=== PATIENT | female | born 1965 | race Caucasian/White ===

== ENCOUNTER 2017-10-28 11:46 | Day surgery (SDC) | payer OTHER ==
[2017-10-28 12:42] VITALS: RESP 16; TEMP 97.8
[2017-10-28 13:46] VITALS: BP 124/82; PULSE 67
--- NOTE | 2017-10-29 09:27 | US ---
EXAMINATION TYPE: US biopsy thorax or neck DATE OF EXAM: 10/28/[address] scan 10/15/2017 from outside institution HISTORY: Right neck mass. FINDINGS: Maximal barrier technique was utilized. The skin overlying a suitable path to the patient' s mass was localized with ultrasound and the overlying skin prepped and draped. Ultrasound was utili zed with sterile technique. Lidocaine was used for local anesthesia. 25-gauge needle was advanced un marilou direct ultrasound guidance and aspirated specimen obtained of the mass, dark chocolate fluid, 3 c c obtained. Additional passes made into the solid component. 4 passes performed in all. Specimen sub mitted in formalin to Pathology. Following the procedure, hemostasis achieved and the patient is dis charged in stable condition without complication. IMPRESSION:STATUS POST ULTRASOUND GUIDED ASPIRATION BIOPSY OF right neck MASS, PATHOLOGY IS PENDING. THIS PROCEDURE IS PERFORMED BY THE UNDERSIGNED.
== END 2017-10-28 13:51 | disposition home or self-care (01) ==
LOC: RADPROMAIN 11:46
PROVIDERS: ATTEND Otolaryngology Plastic Surgery within the Head & Neck
DX: C73 Malignant neoplasm of thyroid gland (principal); C77.0 Secondary and unspecified malignant neoplasm of lymph nodes of head, face and neck
CPT/HCPCS: 10022; 21550; 88173; 88305; 88341; 88342

== ENCOUNTER → 2018-02-03 | Outpatient (CLI) | payer OTHER ==
--- NOTE | 2018-02-04 10:18 | NM ---
EXAMINATION TYPE: NM thyroid uptake only single DATE OF EXAM: 02/04/2018 COMPARISON: Neck CT 10/15/2017 HISTORY: Thyroid cancer Following administration of 103 uCi I-123 Capsule FINDINGS: Thyroid uptake is calculated at 1.1% at 24 hours. IMPRESSION: Abnormal low thyroid uptake
== END | disposition home or self-care (01) ==
LOC: RADNMMAIN 08:17
PROVIDERS: ATTEND Internal Medicine
DX: C73 Malignant neoplasm of thyroid gland (principal); R94.6 Abnormal results of thyroid function studies
CPT/HCPCS: 78012; A9516

== ENCOUNTER → 2018-02-10 | Day surgery (SDC) | payer OTHER ==
--- NOTE | 2018-02-10 14:46 | NM ---
EXAMINATION: Nuclear medicine thyroid I-131 therapy for cancer (outpatient) DATE: 02/10/2018. HISTORY: 53-year-old female status post resection of thyroid cancer. Resected lymph nodes also positi ve. Patient presents for post resection and ablation treatment. COMPARISON: Correlation with nuclear medicine thyroid uptake scan of 02/03/2017. RADIOTRACER: 160.0 mCi I-131. TECHNIQUE: Cytomel has been held. Patient is on a low iodine diet. Dose was prescribed (written directive) by an Authorized User in conjunction with treatment request julianne Gomes. Risks, benefits, and potential complications of radioactive I-131 therapy were discussed in detail wi th the patient by myself and the non licensed nuclear equipment operator. Verbal and written informed consent wer e obtained. Written instructions were given for radiation safety precautions to be observed for 7 day s outpatient. The patient specific exposure calculations were done by RSO to ensure estimated max dose to any indiv idual exposed to the patient was less than 5 mSv. The patient was specifically advised to avoid close contact with children, women, and other members of public. Dose was verified in dose caliber and patient was given oral I-131 pill under the supervision of me prabhakar kwong the non licensed nuclear equipment operator. There were no immediate complications. IMPRESSION: Outpatient 160 mCi I-131 oral therapy capsule for thyroid cancer with metastatic cervical lymph nodes on surgery. Patient to return for postablation scan 2 days and 5 days postadministration.
--- NOTE | 2018-02-17 00:10 | NM ---
EXAMINATION TYPE: NM I-131 THYROID CANCER METASTATIC SCAN WHOLE BODY DATE OF EXAM: 02/12/2018 HISTORY: 53-year-old female with history of thyroid cancer status post thyroidectomy and lymph node r esection. Positive lymph nodes noted on pathology. COMPARISON: Therapy on 02/10/2018 and uptake on 02/03/2018 TECHNIQUE: Following the oral administration of 160 mCi I-131 on 02/10/2018, whole body scan was perfo rmed at 2 days and 5 days after radiotracer administration. FINDINGS: There is physiologic uptake within the salivary glands, nasopharynx, and also within the stomach, col on, and bladder. There is focal intense uptake centered in the thyroidectomy bed. Otherwise, no abnormal tracer activity is seen. IMPRESSION: 1. Expected uptake within the thyroidectomy bed relating to thyroid remnant. 2. No additional abnormal uptake identified throughout the body. No evidence for any residual metasta tic cervical lymph nodes.
== END ==
LOC: RADNMMAIN 12:38
PROVIDERS: ATTEND Internal Medicine
DX: C73 Malignant neoplasm of thyroid gland (principal)
CPT/HCPCS: 79005; A9517

== ENCOUNTER → 2018-09-09 | Outpatient (CLI) | payer OTHER ==
--- NOTE | 2018-09-09 16:51 | FL ---
EXAMINATION TYPE: FL barium swallow w video DATE OF EXAM: 09/09/2018 COMPARISON: NONE HISTORY: Dysphasia TECHNIQUE: Fluoroscopy. FINDINGS: Fluoroscopic guidance was provided for the procedure performed in conjunction with the [facility] satellite pathology department. Please see complete report forthcoming from the Speech Pathology departmen t. Various consistencies from thin liquid to solids were administered. Fluoroscopy time 1.09 minutes. Number of images: 0. No aspiration or penetration was evident. No significant pooling was observed in the vallecula. There was normal propulsion of the bolus. IMPRESSION: 1. Essentially normal modified barium swallow. 2. Some mild prominence of the cricopharyngeus muscle was present during some portions of this examin ation.
== END ==
LOC: RADFLMAIN 11:14
PROVIDERS: ATTEND Otolaryngology Plastic Surgery within the Head & Neck
DX: R13.10 Dysphagia, unspecified (principal)
CPT/HCPCS: 74230

== ENCOUNTER → 2018-09-16 | Outpatient (CLI) | payer OTHER ==
--- NOTE | 2018-09-16 09:50 | FL ---
EXAMINATION TYPE: FL barium swallow DATE OF EXAM: 09/16/2018 CLINICAL HISTORY: Dysphagia. Globus sensation. History of thyroid cancer with lymph nodes had surgery and iodine treatment. TECHNIQUE: A double contrast esophagram is performed utilizing air and barium. A total of 30 second s of fluoroscopic time was utilized during procedure. 58 spot images are saved. COMPARISON: None FINDINGS: The esophagus shows satisfactory motility and emptying into the stomach. No evidence of in traluminal mass or stricture noted. Small sliding-type hiatal hernia is present. No significant gastr oesophageal reflux was seen during real time performance of this study. IMPRESSION: No significant abnormality is seen to account for patient's symptoms.
== END | disposition home or self-care (01) ==
LOC: RADFLWHC 08:42
PROVIDERS: ATTEND Otolaryngology Plastic Surgery within the Head & Neck
DX: R13.10 Dysphagia, unspecified (principal)
CPT/HCPCS: 74220

== ENCOUNTER → 2018-12-24 | Outpatient (CLI) | payer OTHER ==
--- NOTE | 2018-12-28 16:32 | MM ---
Reason for exam: screening (asymptomatic). Last mammogram was performed 17 years and 5 months ago. History: Patient is postmenopausal, has history of other cancer at age 52, and is nulliparous. Family history of breast cancer in grandmother. MG Screening Mammo w CAD Bilateral CC and MLO view(s) were taken. Prior study comparison: July 20, 2001, bilateral screening mammogram. The breast tissue is heterogeneously dense. This may lower the sensitivity of mammography. Nodular asymmetry centrally left CC view. ASSESSMENT: Incomplete: need additional imaging evaluation, BI-RAD 0 RECOMMENDATION: Special view mammogram of the left breast. [facility] will attempt to contact patient to return for supplemental views.
== END | disposition home or self-care (01) ==
LOC: RADMAMWWP 07:28
PROVIDERS: ATTEND Family Medicine
DX: Z12.31 Encounter for screening mammogram for malignant neoplasm of breast (principal)
CPT/HCPCS: 77067

== ENCOUNTER → 2019-01-03 | Outpatient (CLI) | payer OTHER ==
--- NOTE | 2019-01-04 08:06 | MM ---
Reason for exam: additional evaluation requested from abnormal screening. Last mammogram was performed less than 1 month ago. History: Patient is postmenopausal, has history of other cancer at age 52, and is nulliparous. Family history of breast cancer in grandmother. Physical Findings: Nurse did not find any significant physical abnormalities on exam. MG Work Up Mamm w CAD LT Spot compression CC and LM view(s) were taken of the left breast. Prior study comparison: December 24, 2018, bilateral MG screening mammo w CAD. July 20, 2001, bilateral screening mammogram. The breast tissue is heterogeneously dense. This may lower the sensitivity of mammography. No suspicious abnormality. The previously seen abnormality resolves on additional views and appears as fibroglandular tissue compatible with summation. These results were verbally communicated with the patient and result sheet given to the patient on 01/03/19. ASSESSMENT: Negative, BI-RAD 1 RECOMMENDATION: Return to routine screening mammogram schedule for both breasts.
== END | disposition home or self-care (01) ==
LOC: RADMAMWWP 14:20
PROVIDERS: ATTEND Family Medicine
DX: R92.8 Other abnormal and inconclusive findings on diagnostic imaging of breast (principal)
CPT/HCPCS: 77065

== ENCOUNTER → 2020-09-19 | Outpatient (CLI) | payer OTHER ==
--- NOTE | 2020-09-19 23:25 | MR ---
EXAMINATION TYPE: MR knee RT wo con DATE OF EXAM: 09/19/2020 COMPARISON: None HISTORY: Right knee pain x 4 weeks Multiplanar multiecho imaging of the right knee was performed without contrast. There is knee joint effusion. There is some mild spurring on the patella. The anterior and posterior cruciate ligaments are intact. There are small degenerative cysts in the patella. There is 2 cm rounded area of fluid signal in the lateral tibial condyle consistent with a large dege nerative cyst. There is vertical tear through the anterior horn of the lateral meniscus. There is also a small horiz ontal tear anterior horn lateral meniscus. There is some degenerative thinning of the medial meniscus. There is horizontal and vertical tear of the posterior horn medial meniscus. There is 2.5 x 1.5 cm popliteal cyst. There is 12 mm area of irre gular mixed signal involving the tibial spines. This probably relates to nondisplaced fracture of the tibial spines. There is spurring of the femoral and tibial condyles. The collateral ligaments are in tact. IMPRESSION: Nondisplaced fracture of the tibial spines. Large degenerative cyst in the lateral tibial condyle. Tears of the medial and lateral menisci as above. Moderate knee joint effusion and popliteal cyst. Small degenerative cysts in the patella.
== END | disposition home or self-care (01) ==
LOC: RADMRIMAIN 15:14
PROVIDERS: ATTEND Internal Medicine Rheumatology
DX: S83.241A Other tear of medial meniscus, current injury, right knee, initial encounter (principal); S83.281A Other tear of lateral meniscus, current injury, right knee, initial encounter

== ENCOUNTER → 2021-04-11 | Outpatient (CLI) | payer OTHER | END | disposition home or self-care (01) | LOC: LABPAT 13:20 | PROVIDERS: ATTEND Orthopaedic Surgery | DX: Z01.812 Encounter for preprocedural laboratory examination (principal); M17.12 Unilateral primary osteoarthritis, left knee; Z22.322 Carrier or suspected carrier of Methicillin resistant Staphylococcus aureus | CPT/HCPCS: 87070 ==

== ENCOUNTER → 2021-04-24 | Outpatient (CLI) | payer OTHER ==
[~2021-04-24] MED LIST: IRON DEXTRAN 25 MG in SODIUM CHLORIDE 0.9% 50 ML IV ONE; IRON DEXTRAN 975 MG in SODIUM CHLORIDE 0.9% 250 ML IV ONE; SODIUM CHLORIDE 0.9% 250 ML IV ONE; SODIUM CHLORIDE 0.9% 500 ML 500 ML in EMPTY BAG 1 BAG IV PRN
[2021-04-24 08:30] VITALS: RESP 16; TEMP 98
[2021-04-24 09:29] VITALS: BP 125/78; PULSE 85
== END ==
LOC: PROCWHC3 08:07
PROVIDERS: ATTEND Internal Medicine Medical Oncology
DX: D50.0 Iron deficiency anemia secondary to blood loss (chronic) (principal); D72.828 Other elevated white blood cell count; C73 Malignant neoplasm of thyroid gland; Z88.1 Allergy status to other antibiotic agents; Z88.5 Allergy status to narcotic agent; Z88.6 Allergy status to analgesic agent
CPT/HCPCS: 96365; 96366; J1750

== ENCOUNTER → 2021-04-29 | Outpatient (CLI) | payer OTHER ==
[2021-04-29 14:06] LABS: HCT 33.3 % (34.0-46.0); HGB 10.7 gm/dL (11.4-16.0); MCH 23.9 pg (25.0-35.0); MCHC 32.2 g/dL (31.0-37.0); MCV 74.3 fL (80.0-100.0); Microcytosis Slight; Platelet Count 499 k/uL (150-450); RBC 4.48 m/uL (3.80-5.40); RDW 15.6 % (11.5-15.5); WBC 8.5 k/uL (3.8-10.6)
== END | disposition home or self-care (01) ==
LOC: LABPAT 13:29
PROVIDERS: ATTEND Orthopaedic Surgery
DX: Z01.812 Encounter for preprocedural laboratory examination (principal)
CPT/HCPCS: 85027

== ENCOUNTER 2021-04-30 05:58 | Observation (INO) | payer OTHER ==
[2021-04-22 16:01] VITALS: BMI 36.5
--- NOTE | 2021-04-29 13:20 | HP ---
HISTORY AND PHYSICAL CHIEF COMPLAINT: Left knee pain. HISTORY OF PRESENT ILLNESS: The patient is a 56-year-old retired female who presents with progressive left knee pain for the past several years, worsening over the past 2-3 months. She notes diffuse pain, stiffness, and catching. She has a difficult time with walking. She has tried injections along with therapy with only temporary partial relief. She has been working on weight loss as well. She does use a cane. PAST MEDICAL HISTORY: Significant for rheumatoid arthritis, thyroid cancer, hypertension. PAST SURGICAL HISTORY: Hysterectomy and thyroidectomy. CURRENT MEDICATIONS: Albuterol, Famotidine, Lasix, ibuprofen, levothyroxine, lisinopril, lorazepam. ALLERGIES: She denies drug allergies. FAMILY HISTORY: Significant for cancer. SOCIAL HISTORY: Negative for current tobacco or alcohol use. REVIEW OF SYSTEMS: Sixteen-point review of systems otherwise reviewed and is significant for multiple joint complaints. PHYSICAL EXAMINATION: On examination, patient is approximately 5 foot 6, 242 pounds of endomorphic habitus. HEENT exam is nonfocal. NECK is supple. EXTREMITIES: She has painless passive motion of her left hip. Straight leg raise is negative. Active motion left knee, -12 to 70 degrees of flexion. She has a mild effusion. She is tender about the lateral joint line. Collaterals are stable, Taniya is negative, Pema's is equivocal. She has genu valgum alignment. Her distal neurovascular exam appears intact in the left lower extremity. X-rays to include weightbearing notch, lateral and Merchant views left knee obtained in the office show severe lateral and patellofemoral compartment narrowing with subchondral sclerosis and clih-he-dnef changes. IMPRESSION: 1. Left knee severe lateral and patellofemoral compartment osteoarthrosis. 2. History of rheumatoid arthritis. RECOMMENDATIONS: I talked to the patient at length regarding her condition and treatment options. At this point, she is quite symptomatic and limited because of her pain related to her left knee arthritis despite previous conservative measures. After thorough discussion, she opts to proceed with surgery. We will plan to proceed with left total knee arthroplasty. We will institute DVT prophylaxis postoperatively. Risks and benefits were discussed at length in layman's terms. MMODL / IJN: [id number] /
[~2021-04-30 05:58] MED LIST changes: +ACETAMINOPHEN TAB 500 MG TAB PO PRN; -IRON DEXTRAN 25 MG in SODIUM CHLORIDE 0.9% 50 ML IV ONE; -IRON DEXTRAN 975 MG in SODIUM CHLORIDE 0.9% 250 ML IV ONE; +MELOXICAM 7.5 MG TAB PO PRN; -SODIUM CHLORIDE 0.9% 250 ML IV ONE; -SODIUM CHLORIDE 0.9% 500 ML 500 ML in EMPTY BAG 1 BAG IV PRN; +TRANEXAMIC ACID 1,000 MG in SODIUM CHLORIDE 0.9% 100 ML IVPB PRN
[2021-04-30] MEDS ORDERED: DEXAMETHASONE SOD PHOSPHATE 4 MG/ML 1 ML VIAL IV ONE (06:36)
[2021-04-30] MEDS ORDERED: HYDROmorphone 0.5 MG/0.5 ML SYRINGE IVP PRN (06:36)
[2021-04-30] MEDS ORDERED: MIDAZOLAM 2 MG/2 ML VIAL IV PRN (06:36)
[2021-04-30] MEDS ORDERED: ONDANSETRON 4 MG/2 ML VIAL IVP ONE (06:36)
[2021-04-30] MEDS: LACTATED RINGERS 1,000 ML IV SCH (07:01)
[2021-04-30] MEDS ORDERED: PROPOFOL 10 MG/ML 20 ML VIAL IV ONE (07:58)
[2021-04-30] MEDS ORDERED: MIDAZOLAM 2 MG/2 ML VIAL ONE (07:58)
[2021-04-30] MEDS ORDERED: TRANEXAMIC ACID 1,000 MG/10 ML VIAL ONE (07:58)
[2021-04-30] MEDS ORDERED: DEXAMETHASONE SOD PHOSPHATE 4 MG/ML 1 ML VIAL ONE (07:58)
[2021-04-30] MEDS ORDERED: ROPIVACAINE 5 MG/ML 30 ML VIAL ONE (07:58)
[2021-04-30] MEDS ORDERED: SODIUM CHLORIDE 0.9% 100 ML BAG ONE (07:58)
[2021-04-30] MEDS ORDERED: ceFAZolin 1,000 MG in SODIUM CHLORIDE 0.9% 1,000 ML IRRIGATION ONE (08:27)
[2021-04-30] MEDS ORDERED: NALOXONE 0.4 MG/ML 1 ML VIAL IV PRN (09:39)
[2021-04-30] MEDS ORDERED: MAGNESIUM HYDROXIDE 2,400 MG/10 ML CUP PO PRN (09:39)
[2021-04-30] MEDS ORDERED: LACTATED RINGERS 1,000 ML IV ONE (09:52)
--- NOTE | 2021-04-30 10:05 | P.OP ---
Date of Procedure: 04/30/21 Preoperative Diagnosis: Left knee severe tricompartmental osteoarthrosis Postoperative Diagnosis: Same Procedure(s) Performed: Left total knee arthroplastycementedposterior stabilized Implants: Depuy Attune size 6 narrow cemented femoral component, size 5 cemented tibial component, 12 mm articular surface, 35 mm cemented patellar component. Anesthesia: regional, spinal Surgeon: Abhinav De La Garza Recordist Chief #1: Prosper Alcantara Estimated Blood Loss (ml): 50 Pathology: other (Bone fragments) Condition: stable Disposition: PACU Indications for Procedure: The patient's 56-year-old female who presents with progressive left knee pain secondary to rheumatoid and osteoarthrosis despite conservative measures. A discussion of the risks and benefits of operative intervention versus continued conservative measures made with patient. She proceed with surgery. Operative risks to include infection, neurovascular injury, development of blood clots, fracture, component loosening/failure need for central procedures was discussed. Informed consent was obtained. Operative Findings: As below Description of Procedure: The patient was brought to the operating room, and after induction of spinal anesthesia the left lower extremity was prepped and draped in a normal fashion. The tourniquet was inflated to 270 mm marker. A longitudinal incision extending 3 finger breaths above the superior pole of patella extending to the medial aspect the tibial tubercle was then made. The skin and subcutaneous tissues were divided sharply. Electrocautery was used for hemostasis. A medial parapatellar arthrotomy was performed. The medial soft tissues to include the superficial and deep portions of the medial collateral ligament were elevated subperiosteally. The patella was everted. A portion of the retropatellar fat pad was excised sharply. The anterior cruciate ligament was sacrificed. Blunt retractors were placed. A starting hole was made in the distal femur 1 cm anterior to the posterior cruciate ligament origin. An intramedullary femoral guide was then inserted planning on 5 valgus distal cut with 9 mm distal resection. The cutting block was pinned in place. The distal cut was then made. The posterior referencing sizing guide was utilized. I felt size 6 narrow was most appropriate. 3 of external rotation was built into the system and verified off the trans-epicondylar axis and the posterior condyles. The cutting block was pinned in place. The anterior, posterior, and chamfer cuts then made. Bone fragments were removed. The intercondylar guide was placed and the notch cut was made with a sagittal saw. The bone block was removed in one fragment. The trial component was then placed. There is good anterior to posterior and medial to lateral fit. The distal peg holes were drilled. The trial component was removed. Attention was then paid towards preparing the proximal femur. An extra medullary guide was utilized in line with the tibial shaft and second metatarsal distally. I planned on 6 mm resection from the medial compartment. The cutting block was pinned in place. The proximal tibial cut was then made. The bone was removed in one fragment. The remnants of the medial and lateral menisci were excised at the capsular junction with electrocautery. The tibia sized most appropriately at size 5. The trial femoral and tibial components were placed along with a 12 mm articular surface. I was able to obtain full flexion and extension with internal and external rotation. After several flexion and extension cycles, the tibial rotation was marked with electrocautery line with the medial one third of the tibial tubercle. Attention was then paid towards preparing the patella. A patella reamer was utilized taking stem to 14 mm of bone stock. A good flush cut was made. The patella sized most appropriately 35 mm. The peg holes were drilled. The trial components placed. I had good patellofemoral tracking with no hands technique. The trial components were then removed. The tibia was prepared in the appropriate rotation with appropriate drill and keel punch. The posterior osteophytes were removed with a curved osteotome. The flexion and extension gaps were checked and felt to be symmetric at 12 mm. A trial components were then removed. The bony surfaces were prepared with pulsatile lavage and dried. The tibial component was then cemented place was fully seated. Excess cement was removed. The femoral component cemented place and was fully seated. Excess cement was removed. The trial 12 mm articular surface was placed and the knee was put in full extension. The patella component was cemented place. After the cement had sufficiently hardened, the knee was again taken through a range of motion. Again I was able to obtain full flexion and extension with varus and valgus stress. The trial 12 mm articular surface was removed and the final one inserted. This was fully seated. Care was taken to avoid any soft tissue interposition. Pulsatile lavage was again utilized. The medial parapatellar arthrotomy was closed with #2 Ethibond suture. The tourniquet was deflated with approximately 65 minutes total tourniquet time. Final hemostasis was obtained with the cautery. There was minimal bleeding therefore a deep drain was not placed. The subcutaneous tissues were reapproximated with interrupted 2-0 Vicryl sutures. The skin was reapproximated with 3-0 subcuticular strata fix suture. Skin tape and adhesive was applied. A sterile dressing was applied. The patient was awoken from sedation and transferred to recovery room in good condition. Blood loss was estimated at 50 mL. No complications were incurred. Sponge and needle counts were correct at the end of the case. Jordan CLAYTON assisted during the major components of this case to include exposure, bone resection, implantation, and closure.
[2021-04-30] MEDS ORDERED: ROPIVACAINE 0.2%-NS ON-Q PUMP 2 MG/ML EACH MISCELLANE ONE (10:15)
--- NOTE | 2021-04-30 10:22 | XR ---
EXAMINATION TYPE: XR knee limited LT DATE OF EXAM: 04/30/2021 COMPARISON: NONE TECHNIQUE: Two views submitted HISTORY: Post op FINDINGS: There is a prosthetic knee in near anatomic alignment. There is soft tissue edema and emphysema. IMPRESSION: 1. Postoperative change. Appears in near-anatomic alignment
[2021-04-30] MEDS ORDERED: ROPIVACAINE 0.2%-NS ON-Q PUMP 1,090 MG, EMPTY PAIN BALL 1 EACH MISCELLANE PRN (10:39)
[2021-04-30] MEDS: HYDROmorphone 0.5 MG/0.5 ML SYRINGE IVP PRN (17:23)
[2021-04-30] MEDS ORDERED: LORazepam 0.5 MG TAB PO PRN (17:48)
--- NOTE | 2021-04-30 19:33 | P.ANPRN ---
Procedure Note - Anesthesia - Nerve Block Performed Left Adductor Canal Infusion Time Out Performed: Yes Date of Procedure: 04/30/21 Procedure Start Time: :25 Procedure Stop Time: :34 Location of Patient: PreOp Indication: Acute Post-Operative Pain, Requested by Surgeon Sedation Type: Sedate with meaningful contact maintained Preparation: Sterile Prep, Sterile Dressing Position: Supine Catheter: Indwelling Needle Types: Pajunk Needle Gauge: 21 Ultrasound used to visualize needle placement: Yes Ultrasound used to observe medication spread: Yes Blood Aspirated: No Pain Paresthesia on Injection Noted: No Resistance on Injection: Normal Image Stored and Saved: Yes Events: Uneventful and Well Tolerated (ropi .5% 20cc)
--- NOTE | 2021-04-30 19:34 | P.ANPRN ---
Procedure Note - Anesthesia - Nerve Block Performed Left iPack Single Time Out Performed: Yes Date of Procedure: 04/30/21 Procedure Start Time: 07:35 Procedure Stop Time: 07:40 Location of Patient: PreOp Indication: Acute Post-Operative Pain, Requested by Surgeon Sedation Type: Sedate with meaningful contact maintained Preparation: Sterile Prep Position: Supine Needle Types: Pajunk Needle Gauge: 21 Ultrasound used to visualize needle placement: Yes Ultrasound used to observe medication spread: Yes Blood Aspirated: No Pain Paresthesia on Injection Noted: No Resistance on Injection: Normal Image Stored and Saved: Yes Events: Uneventful and Well Tolerated (ropi .5% 25cc plus dexamethasone 4mg)
[2021-04-30] MEDS: traMADol 50 MG TAB PO PRN (20:29)
[2021-04-30] MEDS: SENNOSIDES-DOCUSATE SODIUM 1 EACH TAB PO SCH (20:30)
[2021-04-30] MEDS: FAMOTIDINE 20 MG TAB PO SCH (20:30)
[2021-05-01] MEDS: ACETAMINOPHEN TAB 325 MG TAB PO PRN (01:04)
[2021-05-01] MEDS: ONDANSETRON 4 MG/2 ML VIAL IVP PRN ×2 (01:04→12:41)
[2021-05-01] MEDS: traMADol 50 MG TAB PO PRN ×4 (03:58→22:19)
[2021-05-01] MEDS: LEVOTHYROXINE 88 MCG TAB PO SCH (05:45)
[2021-05-01] MEDS: POTASSIUM CHLORIDE ER 10 MEQ TAB.ER.PRT PO SCH (07:57)
[2021-05-01] MEDS: SERTRALINE 100 MG TAB PO SCH (07:57)
[2021-05-01] MEDS: lisinopriL 10 MG TAB PO SCH (07:57)
[2021-05-01] MEDS: RIVAROXABAN 10 MG TAB PO SCH (07:57)
[2021-05-01] MEDS: FAMOTIDINE 20 MG TAB PO SCH ×2 (07:57→19:33)
--- NOTE | 2021-05-01 08:00 | P.PN ---
Progress Note - Text 05/01/21 727am 56-year-old female status post total knee replacement. Patient has an On-Q pump for postop pain control with the solution running at 8 mL an hour with a VAS of 7. Her pain is predominantly located posteriorly and in her wallace. Plan to continue On-Q pump infusion
[2021-05-01 09:08] LABS: Basophils # (A) 0.03 X 10*3/uL (0.00-0.10); Basophils % (A) 0.3 %; Eosinophils # (A) 0 X 10*3/uL (0.04-0.35); Eosinophils % (A) 0 %; HCT 29.3 % (37.2-46.3); HGB 8.6 g/dL (12.0-15.0); Lymphocytes # (A) 1.35 X 10*3/uL (0.90-5.00); Lymphocytes % (A) 12.9 %; MCH 23.2 pg (27.0-32.0); MCHC 29.4 g/dL (32.0-37.0); Mean Platelet Volume 9.5 fL (9.5-12.2); Monocytes # (A) 1.09 X 10*3/uL (0.20-1.00); Monocytes % (A) 10.4 %; Neutrophils # (A) 7.99 X 10*3/uL (1.80-7.70); Platelet Count 432 X 10*3/uL (140-440); RBC 3.71 X 10*6/uL (4.10-5.20)
--- NOTE | 2021-05-01 11:14 | P.PN ---
Subjective Progress Note Date: 05/01/21 Principal diagnosis: left knee osteoarthritis Patient was seen at bedside this morning resting comfortably in chair. Patient says she is having some knee pain and a lot of pain is in the front of her lower leg. Patient says some of the pain medication has helped ease her pain. Patient also says she has been icing her knee which has been helpful. Patient says she did walk around the room and into the hallway with physical therapy earlier this morning. Patient says she also did walk up-and-down a couple steps. Patient says she has been using incentive spirometer. Patient says he has not had bowel movement yet, however, patient has been passing gas. Patient does not feel that she does not feel safe to go home today because she lives alone and her sisters will not be able to help her until tomorrow. Patient denies chest pain, fever, shortness of breath, nausea, change in vision, loss of bowel/bladder control. Objective - Vital Signs Vital signs: Vital Signs Temp 98.7 F 05/01/21 07:36 Pulse 90 05/01/21 07:36 Resp 17 05/01/21 07:36 BP 127/75 05/01/21 07:36 Pulse Ox 90 L 05/01/21 07:36 Intake & Output 04/30/21 05/01/21 05/01/21 18:59 06:59 18:59 Intake Total 1637 Output Total 50 Balance 1587 Weight 99.3 kg Intake: IV 1351 Intake, IV Titration 50 Amount ceFAZolin 2 gm In Sodium 50 Chloride 0.9% 50 ml @ 100 mls/hr IVPB Q8HR [facility] Rx# :[id number] Oral 236 Output: Estimated Blood Loss 50 Other: Voiding Method Toilet Toilet # Voids 3 1 # Bowel Movements 0 - Exam Left knee: Incision is clean, dry, and intact. The mesh tape is in good condition. There is minimal soft tissue swelling and ecchymosis surrounding the medial and lateral aspects of the incision. Calf is soft, no tenderness with palpation. Plantar flexion, dorsiflexion, EHL, FHL are intact. Sensory exam to light touch throughout the extremity is intact, dorsal pedis pulses 2+. - Labs CBC & Chem 7: 05/01/21 05:33 Labs: Abnormal Lab Results - Last 24 Hours (Table) 05/01/21 Range/Units 05:33 WBC 10.50 H (4.50-10.00) X 10*3/uL RBC 3.71 L (4.10-5.20) X 10*6/uL Hgb 8.6 L (12.0-15.0) g/dL Hct 29.3 L (37.2-46.3) % MCV 79.0 L (80.0-97.0) fL MCH 23.2 L (27.0-32.0) pg MCHC 29.4 L (32.0-37.0) g/dL RDW 17.0 H (11.5-14.5) % Neutrophils # 7.99 H (1.80-7.70) X 10*3/uL Monocytes # 1.09 H (0.20-1.00) X 10*3/uL Eosinophils # 0 L (0.04-0.35) X 10*3/uL Assessment and Plan Assessment: Left knee osteoarthritis Postoperative day #1 status post left total knee arthroplasty Plan: 1. Left knee osteoarthritis - left total knee arthroplasty performed yesterday, 04/30/2021. Patient stable at bedside this morning. Plan discharge home [place] with health services. 2. Appreciate medical management 3. Pain management - Tylenol; tramadol 4. DVT prophylaxis - xarelto 5. GI prophylaxis - senna 6. Encourage incentive spirometer use 7. PT/OT - weightbearing as tolerated with walker 8. Discharge planning - plan discharge home tomorrow, , 05/02/2021 with health services Time with Patient: Less than 30
[2021-05-01] MEDS: LACTATED RINGERS 1,000 ML IV SCH (12:35)
[2021-05-01] MEDS: HYDROmorphone 0.5 MG/0.5 ML SYRINGE IVP PRN (12:39)
--- NOTE | 2021-05-01 13:56 | P.CONS ---
History of Present Illness - Reason for Consult Consult date: 05/01/21 - History of Present Illness HISTORY OF PRESENT ILLNESS A 56-year-old female patient of Dr. Rodriguez with past medical history of hypertension, hypothyroidism status post stage 3 thyroid cancer with complete resection, gastroesophageal reflux disease, rheumatoid arthritis, osteoarthritis, recurrent depression. Patient has been brought in the hospital the care of Dr. De La Garza status post left total knee arthroplasty on 04/30. Patient is complaining of pain in the back of the knee and the calf. She has a Q-pump in place for pain control but this may not cover the areas she is experiencing pain. She has had a little bit of nausea without vomiting. No lightheadedness or dizziness. REVIEW OF SYSTEMS Constitutional: No fever, no chills, no night sweats. No weight change. No weakness, fatigue or lethargy. No daytime sleepiness. EENT: No headache. No blurred vision or double vision, no loss of vision. No loss of Hearing, no ringing in the ears, no dizziness. No nasal drainage or congestion. No epistaxis. No sore throat. Lungs: No shortness of breath, cough, no sputum production. No wheezing. Cardiovascular: No chest pain, no lower extremity edema. No palpitations. No paroxysmal nocturnal dyspnea. No orthopnea. No lightheadedness or dizziness. No syncopal episodes. Abdominal: No abdominal pain. No nausea, vomiting. No diarrhea. No constipati on. No bloody or tarry stools. No loss of appetite. Genitourinary: No dysuria, increased frequency, urgency. No urinary retention. Musculoskeletal: No myalgias. No muscle weakness, no gait dysfunction, no frequent falls. No back pain. No neck pain. Discomfort posterior left knee. Integumentary: No wounds, no lesions. No rash or pruritus. No unusual bruising. No change in hair or nails. Neurologic: No aphasia. No facial droop. No change in mentation. No head injury. No headache. No paralysis. No paresthesia. Psychiatric: No depression. No anxiety. No mood swings. Endocrine: No abnormal blood sugars. No weight change. No excessive sweating or thirst. No cold intolerance. SOCIAL HISTORY Holly's lifelong nonsmoker, no alcohol use, marijuana use or illicit drug use. Patient lives alone. FAMILY HISTORY Mother with history of dementia, COPD and asthma. Father from cancer esophageal and stomach cancer. Patient has 3 brothers and one also has thyroid cancer and one with rheumatoid arthritis. Patient has a sister with history of MRSA infection, diabetes and epilepsy and one sister with Graves' disease. Patient does not have any children. PHYSICAL EXAMINATION Gen: This is a 56-year-old obese female. She is resting in bed appears to be comfortable and in no acute distress. HEENT: Head is atraumatic, normocephalic. Pupils equal, round. Sclerae is anicteric. NECK: Supple. No JVD. No lymphadenopathy. No thyromegaly. LUNGS: Clear to auscultation. No wheezes or rhonchi. No intercostal retractions. HEART: Regular rate and rhythm. No murmur. ABDOMEN: Soft. Bowel sounds are present. No masses. No tenderness. EXTREMITIES: No pedal edema. No calf tenderness. Dressing in place of the left knee, Q- pump in place. NEUROLOGICAL: Patient is awake, alert and oriented x3. Cranial nerves 2 through 12 are grossly intact. ASSESSMENT AND PLAN 1. Osteoarthritis status post left total knee arthroplasty, 04/30. Patient has had no postop complications but only mild nausea. Continue PT, OT, pain management per orthopedics. Incentive spirometry to reduce incidence of atelectasis and hospital acquired pneumonia. Patient is on Xarelto for DVT p rophylaxis. 2. History of stage III thyroid cancer with complete resection of the thyroid, continue levothyroxine 176 g daily. 3. Gastroesophageal reflux disease. Continue Pepcid 20 mg daily. 4. Hypertension. Continue lisinopril 10 mg daily. 5. Recurrent depression. Continue Zoloft 100 mg daily. DISCHARGE PLAN Home with [facility] tomorrow. Impression and plan of care have been directed as dictated by the signing physician. Dana Rice nurse practitioner acting as scribe for signing physician. Past Medical History Past Medical History: Blood Disorder, Cancer, Hypertension, Rheumatoid Arthritis (RA), Thyroid Disorder Additional Past Medical History / Comment(s): ANEMIA. STAGE 3 THYROID CANCER. History of Any Multi-Drug Resistant Organisms: None Reported Past Surgical History: Hysterectomy Additional Past Surgical History / Comment(s): pilonidial cyst removal. THYROIDECTOMY AND LYMPH NODES REMOVED. Past Anesthesia/Blood Transfusion Reactions: No Reported Reaction Type of Cardiac Device: Permanent Pacemaker Device Placement Date:: ? Past Psychological History: Anxiety Smoking Status: Never smoker Past Alcohol Use History: None Reported, Occasional Past Drug Use History: None Reported - Past Family History Father Family Medical History: Cancer, Diabetes Mellitus Brother(s) Family Medical History: Cancer Additional Family Medical History / Comment(s): Thyroid cancer. Sister(s) Family Medical History: Cancer Medications and Allergies Home Medications Medication Instructions Recorded Confirmed Type Aspirin/Acetaminophen/Caffeine 1,000 mg PO BID 10/28/17 04/30/21 History [Excedrin Extra Strength Caplet] Famotidine [Pepcid] 20 mg PO BID 01/07/21 04/24/21 History Potassium Chloride ER [K-Dur 10] 10 meq PO DAILY 01/07/21 04/30/21 History Turmeric Root Extract [Turmeric] 500 mg PO DAILY 01/07/21 04/30/21 History LORazepam [Ativan] 0.5 mg PO DAILY PRN 01/15/21 04/30/21 History Cholecalciferol [Vitamin D3 (25 25 mcg PO DAILY 04/22/21 04/30/21 History Mcg = 1000 Iu)] [facility] Sleep Aid 25 mg PO HS PRN 04/22/21 04/30/21 History Furosemide [Lasix] 20 mg PO MOWEFR 04/22/21 04/24/21 History Hempvana Cream 1 applic TOPICAL DIRECTED PRN 04/22/21 04/24/21 History Ibuprofen 800 mg PO Q8H PRN 04/22/21 04/30/21 History Levothyroxine Sodium [Unithroid] 175 mcg PO QAM 04/22/21 04/24/21 History Lidocaine HCl [Aspercreme 1 applic TOPICAL DIRECTED PRN 04/22/21 04/24/21 History Lidocaine] Lisinopril [Prinivil] 10 mg PO QAM 04/22/21 04/24/21 History Sertraline [Zoloft] 100 mg PO QAM 04/22/21 04/24/21 History Cyanocobalamin (Vitamin B-12) 1,000 mcg PO DAILY 04/24/21 04/24/21 History [Vitamin B-12] Allergies Allergy/AdvReac Type Severity Reaction Status Date / Time amoxicillin Allergy Rash/Hives Verified 04/30/21 06:39 codeine Allergy Unknown Verified 04/30/21 06:39 hydrocodone Allergy Nausea & Verified 04/30/21 06:39 Vomiting morphine Allergy Nausea & Verified 04/30/21 06:39 Vomiting sumatriptan [From Imitrex] Allergy Unknown Verified 04/30/21 06:39 Physical Exam Vitals: Vital Signs Temp Pulse Pulse Resp BP Pulse Ox 05/01/21 07:36 98.7 F 90 17 127/75 90 L 05/01/21 02:00 98.2 F 89 115/70 94 L 04/30/21 20:20 98.3 F 87 17 110/67 94 L 04/30/21 15:50 98 F 91 16 134/80 96 04/30/21 14:00 79 16 107/52 97 04/30/21 13:00 81 16 105/59 98 04/30/21 12:30 80 16 112/51 98 04/30/21 12:00 80 16 112/59 100 04/30/21 11:45 84 16 134/93 99 04/30/21 11:30 84 16 98/54 99 04/30/21 11:15 81 16 107/53 99 04/30/21 11:00 78 16 103/55 96 04/30/21 10:45 89 16 110/65 98 Intake and Output 04/30/21 05/01/21 05/01/21 22:59 06:59 14:59 Intake Total 586 Balance 586 Intake: IV 300 Intake, IV Titration 50 Amount ceFAZolin 2 gm In Sodium 50 Chloride 0.9% 50 ml @ 100 mls/hr IVPB Q8HR [facility] Rx# :[id number] Oral 236 Other: Voiding Method Toilet Toilet # Voids 3 1 # Bowel Movements 0 Weight 99.3 kg Results CBC & Chem 7: 05/01/21 05:33 Labs: Abnormal Lab Results - Last 24 Hours (Table) 05/01/21 Range/Units 05:33 WBC 10.50 H (4.50-10.00) X 10*3/uL RBC 3.71 L (4.10-5.20) X 10*6/uL Hgb 8.6 L (12.0-15.0) g/dL Hct 29.3 L (37.2-46.3) % MCV 79.0 L (80.0-97.0) fL MCH 23.2 L (27.0-32.0) pg MCHC 29.4 L (32.0-37.0) g/dL RDW 17.0 H (11.5-14.5) % Neutrophils # 7.99 H (1.80-7.70) X 10*3/uL Monocytes # 1.09 H (0.20-1.00) X 10*3/uL Eosinophils # 0 L (0.04-0.35) X 10*3/uL
[2021-05-01] MEDS: SENNOSIDES-DOCUSATE SODIUM 1 EACH TAB PO SCH (19:33)
[2021-05-02] MEDS: ACETAMINOPHEN TAB 325 MG TAB PO PRN (04:03)
[2021-05-02] MEDS: LEVOTHYROXINE 88 MCG TAB PO SCH (05:23)
[2021-05-02] MEDS: traMADol 50 MG TAB PO PRN (05:24)
[2021-05-02 07:53] VITALS: RESP 16; TEMP 98.6
[2021-05-02] MEDS: FAMOTIDINE 20 MG TAB PO SCH (08:32)
[2021-05-02] MEDS: lisinopriL 10 MG TAB PO SCH (08:32)
[2021-05-02] MEDS: POTASSIUM CHLORIDE ER 10 MEQ TAB.ER.PRT PO SCH (08:32)
[2021-05-02] MEDS: SERTRALINE 100 MG TAB PO SCH (08:32)
[2021-05-02] MEDS: RIVAROXABAN 10 MG TAB PO SCH (08:32)
--- NOTE | 2021-05-02 11:04 | P.PN ---
Subjective Progress Note Date: 05/02/21 Principal diagnosis: Status post left total knee arthroplasty Patient is evaluated today at bedside, she is resting comfortably. She's been up ambulating with therapy, she's feeling a lot better. Her pain is currently controlled. Currently she denies any headaches, lightheadedness, chest pain or shortness of breath. Objective - Vital Signs Vital signs: Vital Signs Temp 98.6 F 05/02/21 07:53 Pulse 91 05/02/21 07:53 Resp 16 05/02/21 07:53 BP 112/72 05/02/21 07:53 Pulse Ox 95 05/02/21 07:53 Intake & Output 05/01/21 05/02/21 05/02/21 18:59 06:59 18:59 Intake Total 236 Balance 236 Intake: Oral 236 Other: Voiding Method Toilet # Voids 4 4 - Exam Left lower extremity: Incision is clean, dry, and intact. The surgical table is in good condition. There is minimal soft tissue swelling and ecchymosis surrounding the medial and lateral aspects of the incision. Calf is soft, no tenderness with palpation. Plantar flexion, dorsiflexion, EHL, FHL are intact. Sensory exam to light touch throughout the extremity is intact, dorsal pedis pulses 2+. - Labs CBC & Chem 7: 05/01/21 05:33 Assessment and Plan Assessment: Postoperative day #2 status post left total knee arthroplasty Plan: Pain control, plan for discharge home on tramadol 50 mg every 6 hours DVT prophylaxis, Eliquis 2.5 mg twice a day for 2 weeks Wound care instructions were discussed, this including icing and elevating along showering instructions Home health care, this including nursing and therapy after discharge Medical recommendations Discharge planning: Patient will be discharged home today Time with Patient: Less than 30
--- NOTE | 2021-05-02 11:09 | P.DS ---
Providers Date of admission: 05/01/21 15:10 Expected date of discharge: 05/02/21 Attending physician: Abhinav De La Garza Consults: 04/30/21 09:39 Consult Physician Routine Consulting Provider: Conro Gonzalez Reason/Comments: medical management Do you want consulting provider notified?: Yes Primary care physician: Joey Rodriguez MD Hospital Course: Date of admission: 04/30/2021 Date of discharge: 05/02/2021 Admission diagnosis: Status post left total knee arthroplasty Discharge diagnosis: Same Attending physician: Dr. De La Garza Surgical procedures: Left total knee arthroplasty Brief history: Patient is a 86-year-old female with a history of progressive primary left knee osteoarthritis. At this point patient has failed conservative treatment measures and has opted to proceed with a elective left total knee arthroplasty. Hospital course: Details of patient's surgery can be found in operative report. Patient tolerated the procedure well and was subsequently transported to orthopedic floor. Patient's orthopeidc and medical care was provided daily. Patient had daily laboratory tests performed for evaluation of overall blood counts. Patient had daily physical therapy to include strengthening range of motion as well as education with walker ambulation. Patient was treated with Xarelto for their postoperative DVT prophylaxis during their inpatient stay. Patient was noted to have a relatively uneventful postoperative course. Patient reported satisfactory pain control with oral pain medications by postoperative day 1. Patient showed satisfactory progress with physical therapy. Patient moved steadily through the program and had no difficulty meeting the goals by postoperative day 2. Given patient's otherwise satisfactory course and having met physical therapy goals, plan is to discharge patient home on postoperative day 2. Discharge condition/disposition: Patient will be discharged home in stable condition. Discharge medications: Instructions are given on resumption of patient's normal daily medications per primary care recommendation, in addition patient will be prescribed tramadol 50 mg, Colace 100 mg, Eliquis 2.5 mg. Discharge instructions: 1. Wound care and infection precautions, keep incision dry and covered while showering, no lotions, creams, moisturizers. No soaking, tubs, pools, hottubs. Do not scrub over the incision. 2. Weight-bear as tolerated with walker / cane until follow-up. 3. Ice and elevate when necessary. Do not exceed 20 minutes per hour with ice pack. 4. Utilize compression sleeve until seen at first follow up appointment. 5. Visiting nursing care. 6. Home physical therapy including home CPM. 7. Pain meds and anticoagulants per prescription. 8. Pain medication has potential to cause constipation. Increase oral fluid and fiber intake. Contact primary care provider if you have not had a bowel movement within 48 hours after discharge 9. No anti-inflammatory medication until discussed at first post operative visit, this including Motrin, Aleve, Mobic, Diclofenac. 10. Follow up in office at 2 weeks postop with Jordan Alcantara PA-C/Wilian Rousseau 11. Follow up with your primary care doctor 7-10 days after discharge. 12. Contact [facility] with any questions, . Procedures: Left total knee arthroplasty Patient Condition at Discharge: Good Plan - Discharge Summary Discharge Rx Participant: Yes New Discharge Prescriptions: New Ferrous Sulfate [Iron (65 MG Elemental)] 325 mg PO W/LUNCH #30 tab Sennosides-Docusate Sodium [Senokot-S] 2 each PO HS tab Docusate [Colace] 100 mg PO DAILY #30 capsule traMADol HCl [Ultram] 50 mg PO Q6H PRN #28 tab PRN Reason: Pain Apixaban [Eliquis] 2.5 mg PO BID #60 tab Continue Potassium Chloride ER [K-Dur 10] 10 meq PO DAILY Cholecalciferol [Vitamin D3 (25 Mcg = 1000 Iu)] 25 mcg PO DAILY Sertraline [Zoloft] 100 mg PO QAM Lisinopril [Prinivil] 10 mg PO QAM [facility] Sleep Aid 25 mg PO HS PRN PRN Reason: Insomnia Lidocaine HCl [Aspercreme Lidocaine] 1 applic TOPICAL DIRECTED PRN PRN Reason: Pain Famotidine [Pepcid] 20 mg PO BID Turmeric Root Extract [Turmeric] 500 mg PO DAILY LORazepam [Ativan] 0.5 mg PO DAILY PRN PRN Reason: Anxiety Levothyroxine Sodium [Unithroid] 175 mcg PO QAM Furosemide [Lasix] 20 mg PO MOWEFR Hempvana Cream 1 applic TOPICAL DIRECTED PRN PRN Reason: Pain Cyanocobalamin (Vitamin B-12) [Vitamin B-12] 1,000 mcg PO DAILY Discontinued Aspirin/Acetaminophen/Caffeine [Excedrin Extra Strength Caplet] 1,000 mg PO BID Ibuprofen 800 mg PO Q8H PRN PRN Reason: Pain Discharge Medication List Famotidine [Pepcid] 20 mg PO BID 01/07/21 [History] Potassium Chloride ER [K-Dur 10] 10 meq PO DAILY 01/07/21 [History] Turmeric Root Extract [Turmeric] 500 mg PO DAILY 01/07/21 [History] LORazepam [Ativan] 0.5 mg PO DAILY PRN 01/15/21 [History] Cholecalciferol [Vitamin D3 (25 Mcg = 1000 Iu)] 25 mcg PO DAILY 04/22/21 [History] [facility] Sleep Aid 25 mg PO HS PRN 04/22/21 [History] Furosemide [Lasix] 20 mg PO MOWEFR 04/22/21 [History] Hempvana Cream 1 applic TOPICAL DIRECTED PRN 04/22/21 [History] Levothyroxine Sodium [Unithroid] 175 mcg PO QAM 04/22/21 [History] Lidocaine HCl [Aspercreme Lidocaine] 1 applic TOPICAL DIRECTED PRN 04/22/21 [History] Lisinopril [Prinivil] 10 mg PO QAM 04/22/21 [History] Sertraline [Zoloft] 100 mg PO QAM 04/22/21 [History] Cyanocobalamin (Vitamin B-12) [Vitamin B-12] 1,000 mcg PO DAILY 04/24/21 [History] Apixaban [Eliquis] 2.5 mg PO BID #60 tab 05/02/21 [Rx] Docusate [Colace] 100 mg PO DAILY #30 capsule 05/02/21 [Rx] Ferrous Sulfate [Iron (65 MG Elemental)] 325 mg PO W/LUNCH #30 tab 05/02/21 [Rx] Sennosides-Docusate Sodium [Senokot-S] 2 each PO HS tab 05/02/21 [Rx] traMADol HCl [Ultram] 50 mg PO Q6H PRN #28 tab 05/02/21 [Rx] Follow up Appointment(s)/Referral(s): Joey Rodriguez MD [Primary Care Provider] - 1 Week [facility], [NON-STAFF] - ([facility] will call you to schedule your home physical therapy and nursing visits. ) Ladarius Grimes [NON-STAFF] - (*Please call [facility] once home to arrange delivery of the Continous Passive Motion (CPM) machine. ) Wilian Ojeda, PAC [PHYSICIAN FORESTRY FOREMAN] - 2 Weeks Activity/Diet/Wound Care/Special Instructions: Orthopedic Discharge Instructions: 1. Wound care and infection precautions, keep incision dry and covered while showering, no lotions, creams, moisturizers. No soaking, pools, hot tubs. Do not scrub over incision. 2. Weight-bear as tolerated with walker / cane until follow-up. 3. Ice and elevate when necessary. Do not exceed 20 minutes per hour with ice pack. 4. Utilize compression sleeve until seen at first follow up appointment. 5. Pain meds and anticoagulants per prescription. 6. Pain medication has potential to cause constipation. Increase oral fluid and fiber intake. Contact primary care provider if you have not had a bowel movement within 48 hours after discharge. 7. No anti-inflammatory medication until discussed at first post operative visit, this including Motrin, Aleve, Mobic, Diclofenac. 8. Follow up in office at 2 weeks postop with Jordan Alcantara PA-C/Wilian Ojeda PA-C 9. Follow up with your primary care doctor 7-10 days after discharge. 10. Contact [facility] with any questions, . Discharge Disposition: HOME WITH HOME HEALTH SERVICES
[2021-05-02] MEDS ORDERED: FERROUS SULFATE 325 MG TAB PO SCH (12:30)
[2021-05-02 13:06] LABS: Appearance,Urine Clear (Clear); Bilirubin,Urine Negative (Negative); Blood,Urine Negative (Negative); Color,Urine Yellow; Glucose,Urine (UA) Negative (Negative); Ketones,Urine Negative (Negative); Leukocyte Esterase,Urine Negative (Negative); Mucus,Urine Many /hpf; Nitrite,Urine Negative (Negative); Protein,Urine 1+ (Negative); Specific Gravity,Urine 1.023 (1.001-1.035); Squamous Epithelial Cell,Urine <1 /hpf (0-4); Urobilinogen,Urine <2.0 mg/dL (<2.0); WBC,Urine 2 /hpf (0-5)
[2021-05-02 14:02] VITALS: BP 91/61; PULSE 100
--- NOTE | 2021-05-02 15:13 | P.PN ---
Subjective Progress Note Date: 05/02/21 HISTORY OF PRESENT ILLNESS A 56-year-old female patient of Dr. Rodriguez with past medical history of hypertension, hypothyroidism status post stage 3 thyroid cancer with complete resection, gastroesophageal reflux disease, rheumatoid arthritis, osteoarthritis, recurrent depression. Patient has been brought in the hospital the care of Dr. De La Garza status post left total knee arthroplasty on 04/30. Patient is complaining of pain in the back of the knee and the calf. She has a Q-pump in place for pain control but this may not cover the areas she is experiencing pain. She has had a little bit of nausea without vomiting. No lightheadedness or dizziness. 05/02: It is seen today walking steps with physical therapy and return to her room. Repeat hemoglobin is 8.6 and patient started on ferrous sulfate. She has been afebrile, heart rate 93, blood pressure 112/68, pulse ox 96% on 2 L nasal cannula. Analysis was clear with nitrate and leukoesterase negative. Patient encouraged to use incentive spirometry. She denies dysuria. She states she hasn't an occasional cough that is chronic in the fall and spring. Plan is for discharge home today. Medication reconciliation has been reviewed for discharge. REVIEW OF SYSTEMS Constitutional: No fever, no chills, no night sweats. No weight change. No weakness, fatigue or lethargy. No daytime sleepiness. EENT: No headache. No blurred vision or double vision, no loss of vision. No loss of Hearing, no ringing in the ears, no dizziness. No nasal drainage or congestion. No epistaxis. No sore throat. Lungs: No shortness of breath, cough, no sputum production. No wheezing. Cardiovascular: No chest pain, no lower extremity edema. No palpitations. No paroxysmal nocturnal dyspnea. No orthopnea. No lightheadedness or dizziness. No syncopal episodes. Abdominal: No abdominal pain. No nausea, vomiting. No diarrhea. No constipation. No bloody or tarry stools. No loss of appetite. Genitourinary: No dysuria, increased frequency, urgency. No urinary retention. Musculoskeletal: No myalgias. No muscle weakness, no gait dysfunction, no frequent falls. No back pain. No neck pain. Discomfort posterior left knee. Integumentary: No wounds, no lesions. No rash or pruritus. No unusual bruising. Neurologic: No aphasia. No facial droop. No change in mentation. No head injury. No headache. No paralysis. No paresthesia. Psychiatric: No depression. No anxiety. No mood swings. Endocrine: No abnormal blood sugars. No weight change. PHYSICAL EXAMINATION Gen: This is a 56-year-old obese female. She is a lady with physical therapy and appears to be comfortable and in no acute distress. HEENT: Head is atraumatic, normocephalic. Pupils equal, round. Sclerae is anicteric. NECK: Supple. No JVD. No lymphadenopathy. No thyromegaly. LUNGS: Clear to auscultation. No wheezes or rhonchi. No intercostal retractions. HEART: Regular rate and rhythm. No murmur. ABDOMEN: Soft. Bowel sounds are present. No masses. No tenderness. EXTREMITIES: No pedal edema. No calf tenderness. Dressing in place of the left knee, Q- pump in place. NEUROLOGICAL: Patient is awake, alert and oriented x3. Cranial nerves 2 through 12 are grossly intact. ASSESSMENT AND PLAN 1. Osteoarthritis status post left total knee arthroplasty, 04/30. Patient has had no postop complications but only mild nausea. Continue PT, OT, pain ma nagement per orthopedics. Incentive spirometry to reduce incidence of atelectasis and hospital acquired pneumonia. Patient is on Xarelto for DVT prophylaxis. 2. History of stage III thyroid cancer with complete resection of the thyroid, continue levothyroxine 176 g daily. 3. Gastroesophageal reflux disease. Continue Pepcid 20 mg daily. 4. Hypertension. Continue lisinopril 10 mg daily. 5. Recurrent depression. Continue Zoloft 100 mg daily. 6. Acute blood loss anemia expected with surgery. Patient started on ferrous sulfate 325 mg daily. DISCHARGE PLAN Home with [facility] Impression and plan of care have been directed as dictated by the signing physician. Dana Rice nurse practitioner acting as scribe for signing physician. Objective - Vital Signs Vital signs: Vital Signs Temp 98.6 F 05/02/21 07:53 Pulse 91 05/02/21 07:53 Resp 16 05/02/21 07:53 BP 112/72 05/02/21 07:53 Pulse Ox 95 05/02/21 07:53 Intake & Output 05/01/21 05/02/21 05/02/21 18:59 06:59 18:59 Intake Total 236 Balance 236 Intake: Oral 236 Other: Voiding Method Toilet # Voids 4 4 - Labs CBC & Chem 7: 05/01/21 05:33
== END 2021-05-02 15:32 | disposition home health service (06) ==
LOC: OR 05:58 → 4SSUR 15:10 → OR 05-01 15:10
PROVIDERS: ADMIT Orthopaedic Surgery; ATTEND Orthopaedic Surgery
DX: M17.12 Unilateral primary osteoarthritis, left knee (principal); M21.062 Valgus deformity, not elsewhere classified, left knee; M25.762 Osteophyte, left knee; M06.9 Rheumatoid arthritis, unspecified; E89.0 Postprocedural hypothyroidism; I10 Essential (primary) hypertension; K21.9 Gastro-esophageal reflux disease without esophagitis; D64.9 Anemia, unspecified; F33.9 Major depressive disorder, recurrent, unspecified; F41.9 Anxiety disorder, unspecified; E66.9 Obesity, unspecified; Z68.34 Body mass index [BMI] 34.0-34.9, adult; Z20.822 Contact with and (suspected) exposure to COVID-19; Z79.890 Hormone replacement therapy; Z79.899 Other long term (current) drug therapy; Z88.0 Allergy status to penicillin; Z88.5 Allergy status to narcotic agent; Z88.6 Allergy status to analgesic agent; Z88.8 Allergy status to other drugs, medicaments and biological substances; Z90.710 Acquired absence of both cervix and uterus; Z85.850 Personal history of malignant neoplasm of thyroid; Z82.5 Family history of asthma and other chronic lower respiratory diseases; Z80.0 Family history of malignant neoplasm of digestive organs; Z80.8 Family history of malignant neoplasm of other organs or systems; Z83.3 Family history of diabetes mellitus; Z82.0 Family history of epilepsy and other diseases of the nervous system; Z82.61 Family history of arthritis; Z83.49 Family history of other endocrine, nutritional and metabolic diseases
CPT/HCPCS: 97116; 97161; 64999; 64448; 76942; 88305; 85025; 81001; 88311; 87635; 73560; 27447; G0378 ×2; C1713 ×2; C1776; J2250; J1100; J0690 ×3; J2405 ×2; J2795 ×2; J2704; J1170 ×2

== ENCOUNTER 2021-11-07 12:05 | Day surgery (SDC) | payer OTHER ==
[2021-11-07 13:34] VITALS: RESP 16; TEMP 97.9
[2021-11-07 14:24] VITALS: BP 111/65; PULSE 78
--- NOTE | 2021-11-07 15:51 | US ---
ULTRASOUND GUIDED CORE BIOPSY RIGHT AXILLARY LYMPHADENOPATHY: CLINICAL HISTORY: Large right lymph node FINDINGS: The procedure was explained to the patient. The risks, complications, benefits and alternatives were discussed and any questions were answered. Informed consent was obtained. Patient was placed supin e on the ultrasound table and prepped and draped in the usual sterile fashion. Utilizing a 18 gauge needle, 3 passes were made into the requested right axilla lymph node. Patient was stable throughout the procedure. Pathology is pending. All elements of maximal barrier technique were utilized. IMPRESSION: 1. Successful ultrasound guided core biopsy right axilla lymph node.
== END 2021-11-07 14:37 | disposition home or self-care (01) ==
LOC: RADPROMAIN 12:05
PROVIDERS: ATTEND Internal Medicine Medical Oncology
DX: C73 Malignant neoplasm of thyroid gland (principal)
CPT/HCPCS: 38505; 76942; 88305; 88341; 88342

== ENCOUNTER → 2021-12-13 | Outpatient (CLI) | payer OTHER ==
--- NOTE | 2021-12-13 14:50 | CT ---
EXAMINATION TYPE: CT chest w con CT DLP: 573 mGycm, Automated exposure control for dose reduction was used. DATE OF EXAM: 12/13/2021 2:38 PM COMPARISON: CLINICAL INDICATION:Female, 56 years old with history of R91.8 abn lung field, Lung nodule, hx thyroi d ca TECHNIQUE: Multiple axial images were obtained through the chest. Contrast used:100 mL of Isovue 300 with IV Contrast, Oral contrast used: without Oral Contrast FINDINGS: LUNGS/ PLEURA: Right major fissure intrafissural lymph node. Scattered pulmonary nodules are seen thr oughout the lungs largest within the left lower lobe measuring 10 mm on image 36. Additional less sherif n 6 mm nodules are present. Examples include right lower lobe 4 mm nodule on image 34, left lower lob e 4 mm nodule on image 39, left upper lobe 4 mm nodule on image 28. AIRWAY: Patent and unremarkable. HEART: Size within normal limits. MEDIASTINUM: No gross evidence of adenopathy. VASCULATURE: No aortic aneurysm. MUSCULOSKELETAL: No acute osseous abnormalities SOFT TISSUES/LYMPH NODES: Unremarkable. LOWER NECK: No significant findings. UPPER ABDOMEN: Hepatic cyst and splenic probable complicated cyst versus hemangioma. Diffuse low-atte nuation to the liver parenchyma. Fatty atrophy/hypertrophy of the pancreas. IMPRESSION: 1. Left lower lobe 2 mm pulmonary nodule along with a couple scattered sub-6 mm pulmonary nodules. C omparisons with priors at outside institutions would be of benefit for stability. Attention on follow -up imaging given patient's history of cancer. 2. Hepatic steatosis.
== END | disposition home or self-care (01) ==
LOC: RADCTMAIN 13:56
PROVIDERS: ATTEND Internal Medicine Critical Care Medicine
DX: R91.8 Other nonspecific abnormal finding of lung field (principal); K76.0 Fatty (change of) liver, not elsewhere classified
CPT/HCPCS: 71260; Q9967